=== PATIENT | male | born 1990 | race Caucasian/White ===

== ENCOUNTER 2017-09-22 14:56 | Emergency (ER) | payer SELFPAY ==
[2017-09-22] MEDS ORDERED: ONDANSETRON 4 MG/2 ML VIAL IVP ONE ×2 (14:58→15:29)
[2017-09-22] MEDS ORDERED: HYDROmorphONE/DILAUDID 1 MG/ML INJ IVP ONE (14:58)
[2017-09-22] MEDS ORDERED: NS 1,000 ML IV ONE (14:58)
[2017-09-22] MEDS ORDERED: ceFAZolin 2 GM/DEXTROSE 100 ML IV ONE (14:59)
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
[2017-09-22] MEDS ORDERED: CLINDAMYCIN 300 MG in NS 100 ML IV ONE (15:03)
[2017-09-22 15:07] LABS: PLATELET COUNT 188 10^3/uL (150-400)
[2017-09-22 15:16] LABS: INR 1.11 (0.83-1.16); PROTIME(PATIENT) 14.5 SEC (12.0-15.0)
[2017-09-22] MEDS ORDERED: LET GEL TOPICAL 1 EA SYR TP ONE (15:30)
[2017-09-22 16:11] VITALS: BP 145/80
== END 2017-09-22 16:30 | disposition home or self-care (01) ==
PROC: 0HQLXZZ Repair Left Lower Leg Skin, External Approach (ICD-10-PCS; principal; 2017-09-22)
DX: S43.102A Unspecified dislocation of left acromioclavicular joint, initial encounter (principal); S91.311A Laceration without foreign body, right foot, initial encounter; V18.4XXA Pedal cycle driver injured in noncollision transport accident in traffic accident, initial encounter; Y92.410 Unspecified street and highway as the place of occurrence of the external cause; Y99.8 Other external cause status; Y93.89 Activity, other specified
CPT/HCPCS: 96365; J0690; J1170; J2405; L4386

== ENCOUNTER 2017-09-29 14:03 | Emergency (ER) | payer SELFPAY ==
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
[2017-09-29] MEDS ORDERED: CLINDAMYCIN 150 MG CAP PO ONE (14:46)
[2017-09-29] MEDS ORDERED: OXYCODONE/APAP 5/325 TAB PO ONE (14:46)
[2017-09-29] MEDS ORDERED: ONDANSETRON DISINTEGRATING 4 MG TAB PO ONE (14:51)
[2017-09-29 15:58] VITALS: BP 145/89
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
== END 2017-09-29 15:58 | disposition home or self-care (01) ==
DX: L03.116 Cellulitis of left lower limb (principal); S92.302D Fracture of unspecified metatarsal bone(s), left foot, subsequent encounter for fracture with routine healing; S43.102D Unspecified dislocation of left acromioclavicular joint, subsequent encounter; J45.909 Unspecified asthma, uncomplicated; V89.2XXD Person injured in unspecified motor-vehicle accident, traffic, subsequent encounter

== ENCOUNTER → 2017-10-13 | Outpatient (CLI) | payer MEDICAID | LOC: FIMAGING 15:49 | PROVIDERS: ATTEND Nurse Practitioner Women's Health | DX: S92.325D Nondisplaced fracture of second metatarsal bone, left foot, subsequent encounter for fracture with routine healing (principal) ==

== ENCOUNTER 2017-12-01 22:28 | Emergency (ER) | payer MEDICAID ==
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
[2017-12-01] MEDS ORDERED: PHENAZOPYRIDINE HCL 200 MG TAB PO ONE (23:14)
[2017-12-01] MEDS ORDERED: DOXYCYCLINE 100 MG PREPACK#2 BTL TAKEHOME ONE (23:27)
[2017-12-01] MEDS ORDERED: DOXYCYCLINE HYCLATE 100 MG CAP/TAB PO ONE (23:27)
[2017-12-01 23:51] VITALS: BP 119/72
== END 2017-12-01 23:51 | disposition home or self-care (01) ==
DX: N30.01 Acute cystitis with hematuria (principal); B96.20 Unspecified Escherichia coli [E. coli] as the cause of diseases classified elsewhere; J45.909 Unspecified asthma, uncomplicated